=== PATIENT | male | born 1980 | race Two or more races ===

== ENCOUNTER 2021-12-20 23:26 | Emergency (ER) | payer OTHER ==
[~2021-12-20] VITALS: Ht 162.6 cm; Wt 79.5 kg
[2021-12-20 23:31] VITALS: BP 135/80
== END 2021-12-20 23:46 | disposition left against medical advice (07) ==
LOC: EMS 23:35
DX: Z53.21 Procedure and treatment not carried out due to patient leaving prior to being seen by health care provider (principal)